=== PATIENT | male | born 1950 | race Caucasian/White ===

== ENCOUNTER 2018-11-23 14:27 | Outpatient (CLI) | payer OTHER | END 2018-11-23 14:32 | disposition home or self-care (01) | LOC: EKG 14:27 | DX: I10 Essential (primary) hypertension (principal) ==

== ENCOUNTER 2018-12-08 09:22 | Day surgery (SDC) | payer OTHER ==
[~2018-12-08 09:22] MED LIST: AMBIEN5 MG PO; CLONAZEPAM0.5 MG PO; DIOVAN320 MG PO; LANTUS SOL100 UNIT/1 SUBCUTANEO; METOPROLOL SUCC50 MG PO; PRISTIQ25 MG PO; SYNJARDY 12.5-1 EACH PO; ZOCOR20 MG PO
== END 2018-12-08 19:30 | disposition home or self-care (01) ==
LOC: CIR.AMB 09:22
DX: N39.3 Stress incontinence (female) (male) (principal)
CPT/HCPCS: 53440; C1771